=== PATIENT | male | born 1985 | race Two or more races ===

== ENCOUNTER 2024-07-17 01:12 | Emergency (ER) | payer SELFPAY ==
[~2024-07-17] VITALS: Ht 188 cm; Wt 95.5 kg
[2024-07-17 01:35] VITALS: BP 137/98; PULSE 83; RESP 22; TEMP 97.9; O2SAT 100
[2024-07-17] MEDS: LORazepam 1 MG TABLET PO ONE (02:06)
== END 2024-07-17 02:57 | disposition home or self-care (01) ==
LOC: EMS 01:12
DX: R06.02 Shortness of breath (principal); F31.9 Bipolar disorder, unspecified; F20.9 Schizophrenia, unspecified; E11.9 Type 2 diabetes mellitus without complications; I10 Essential (primary) hypertension; F10.20 Alcohol dependence, uncomplicated; Z98.890 Other specified postprocedural states
CPT/HCPCS: 93005; 99283